=== PATIENT | female | born 1980 | race American Indian/Alaskan Native ===

== ENCOUNTER 2021-11-26 14:40 | Emergency (ER) | payer OTHER, MEDICAID ==
--- NOTE | 2021-11-26 15:09 | Emergency Department Report ---
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 She states that she is going through about 4 pads daily. She denies dizziness, weakness, and fatigue. - ROS Review of Systems: Patient complains of vaginal bleeding only. Denies abdominal pain and dysuria. - Exam Vital Signs: Vital Signs 11/26/21 15:00 Temperature 98.7 F Pulse Rate 74 Respiratory 18 Rate Blood Pressure 123/79 O2 Sat by Pulse 99 Oximetry Physical Exam: Awake alert and oriented. No tenderness to palpation of abdomen. MSE screening note: Focused history and physical exam performed. Due to findings the following was ordered: CBC, CMP, UA, serum qualitative . Patient to be evaluated by another provider when she gets to the room. ED Disposition for MSE Condition: Stable
[2021-11-26 15:41] LABS: Hematocrit 36.7 % (30.3-42.9); Mean Corpuscular HGB Conc 33 % (30-34); Mean Corpuscular Volume 90 fl (79-97); Platelet Count 288 K/mm3 (140-440); Red Blood Count 4.06 M/mm3 (3.65-5.03); Red Cell Distribution Width 13.9 % (13.2-15.2)
[2021-11-26 16:04] LABS: Alanine Aminotransferase 7 units/L (7-56); Albumin 4.1 g/dL (3.9-5); BUN/Creatinine Ratio 15; Blood Urea Nitrogen 12 mg/dL (7-17); Calcium 9.1 mg/dL (8.4-10.2); Hemolysis Index 1
[2021-11-26] MEDS ORDERED: KETOROLAC 10 MG TAB PO ONE (17:54)
[2021-11-26 18:19] LABS: Bilirubin,Urine NEG (Negative); Blood,Urine LG (Negative); Color,Urine Yellow (Yellow); Urobilinogen,Urine < 2.0 mg/dL (<2.0)
[2021-11-26 18:23] LABS: Mucus,Urine FEW /HPF
[2021-11-26 18:26] LABS: RBC,Urine > 182.0 /HPF (0.0-6.0)
--- NOTE | 2021-11-26 19:29 | Ultrasound Report ---
ULTRASOUND PELVIS INDICATION / CLINICAL INFORMATION: vaginal bleeding. TECHNIQUE: Transvaginal. Duplex Color Doppler used: Yes. COMPARISON: None available FINDINGS: UTERUS: Uterus measures 10.2 cm in length. The endometrial echo complex appears thickened measuring 2 .5 cm on image 10. There is a 1.6 cm cervical cyst. There is also a 5 mm cervical cyst. RIGHT ADNEXA: Right ovary contains a 2.6 cm simple cyst. Normal color Doppler blood flow. LEFT ADNEXA: There is a 2 cm left ovarian cyst. Normal color Doppler blood flow. URINARY BLADDER: No significant abnormality. FREE FLUID: None. ADDITIONAL FINDINGS: None. IMPRESSION: 1. Endometrial echo complex is thickened measuring 2.5 cm by my measurement. Correlation with menstru al cycle is recommended. 2. Simple bilateral ovarian cysts, no sonographic follow-up is needed. Signer Name: Gerardo Martini MD Signed: 11/26/2021 7:24 PM Workstation Name: [id number]
--- NOTE | 2021-11-26 19:52 | Emergency Department Report ---
ED Female HPI - General Chief complaint: Vaginal Bleeding Stated complaint: VAGINAL BLEEDING OVER 35 DAYS Time Seen by Provider: 11/26/21 15:06 Source: patient Mode of arrival: Ambulatory Limitations: No Limitations - History of Present Illness Initial comments: 41-year-old black female with a past medical history of asthma and narcolepsy and a surgical history of a myomectomy last year presents to the emergency department for evaluation of vaginal bleeding. She states that she started her period on October 09 and since then she has been bleeding persistently. She states that she inserted her NuvaRing and bleeding slowed down but over the past week bleeding has become progressively worse. She states that she has been saturating 3-4 pads daily. She states that she is also having some intermittent abdominal cramping. She denies fever, dysuria, nausea, vomiting, and vaginal discharge, but has had some intermittent dizziness and weakness over the past few days. MD Complaint: vaginal discharge -: Gradual, month(s) (1.5) Location: other (Generalized) Severity: mild Severity scale (0 -10): 2 Consistency: intermittent, now resolved Are you Now?: No Associated Symptoms: vaginal bleeding, abdominal pain. denies: vaginal discharge, nausea/vomiting, fever/chills, headaches, loss of appetite, dysuria, hematuria, rash, seizure, shortness of breath, syncope, weakness - Related Data Sexually active: Yes Previous Rx's Medication Instructions Recorded Last Taken Type medroxyPROGESTERone ACETATE 10 mg PO DAILY #10 tab 11/26/21 Unknown Rx [Medroxyprogesterone Acetate] Allergies Allergy/AdvReac Type Severity Reaction Status Date / Time No Known Allergies Allergy Unverified 11/26/21 14:59 ED Review of Systems ROS: Stated complaint: VAGINAL BLEEDING OVER 35 DAYS Other details as noted in HPI Comment: All other systems reviewed and negative Constitutional: denies: chills, fever, malaise, weakness Eyes: denies: vision change ENT: denies: congestion Respiratory: denies: shortness of breath, SOB with exertion Cardiovascular: denies: chest pain, palpitations, dyspnea on exertion, orthopnea, edema, syncope, paroxysmal nocturnal dyspnea Gastrointestinal: denies: abdominal pain, nausea, vomiting, diarrhea, constipation, hematemesis, melena, hematochezia Genitourinary: denies: urgency, dysuria Musculoskeletal: denies: back pain Skin: denies: rash, lesions Neurological: weakness. denies: headache ED Past Medical Hx - Past Medical History Previous Medical History?: Yes Hx Asthma: Yes Additional medical history: Narcolepsy, Uterine fibroids - Surgical History Past Surgical History?: Yes Additional Surgical History: Uterine fibroid removal - Medications Home Medications: Home Medications Medication Instructions Recorded Confirmed Last Taken Type medroxyPROGESTERone ACETATE 10 mg PO DAILY #10 tab 11/26/21 Unknown Rx [Medroxyprogesterone Acetate] ED Physical Exam - General Limitations: No Limitations General appearance: alert, in no apparent distress - Head Head exam: Present: atraumatic, normocephalic - Eye Eye exam: Present: normal appearance. Absent: scleral icterus, conjunctival injection, periorbital swelling, periorbital tenderness - ENT ENT exam: Present: normal exam, normal orophraynx - Neck Neck exam: Present: normal inspection, full ROM. Absent: tenderness, meningismus, lymphadenopathy, thyromegaly - Respiratory Respiratory exam: Present: normal lung sounds bilaterally. Absent: respiratory distress, wheezes, rales, rhonchi, stridor, chest wall tenderness - Cardiovascular Cardiovascular Exam: Present: regular rate, normal heart sounds - GI/Abdominal GI/Abdominal exam: Present: soft, normal bowel sounds. Absent: distended, tenderness, guarding, rebound, rigid - Extremities Exam Extremities exam: Present: normal inspection, normal capillary refill. Absent: pedal edema, joint swelling, calf tenderness - Back Exam Back exam: Present: normal inspection. Absent: CVA tenderness (R), CVA tenderness (L), vertebral tenderness - Neurological Exam Neurological exam: Present: alert, oriented X3, CN II-XII intact, normal gait, reflexes normal. Absent: motor sensory deficit - Psychiatric Psychiatric exam: Present: normal affect, normal mood - Skin Skin exam: Present: warm, dry, intact, normal color ED Course Vital Signs 11/26/21 11/26/21 15:00 20:02 Temperature 98.7 F Pulse Rate 74 76 Respiratory 18 14 Rate Blood Pressure 123/79 Blood Pressure 133/86 [Left] O2 Sat by Pulse 99 100 Oximetry ED Medical Decision Making - Lab Data Result diagrams: 11/26/21 15:22 11/26/21 15:22 - Radiology Data Radiology results: report reviewed, image reviewed Pelvic ultrasound: FINDINGS: UTERUS: Uterus measures 10.2 cm in length. The endometrial echo complex appears thickened measuring 2.5 cm on image 10. There is a 1.6 cm cervical cyst. There is also a 5 mm cervical cyst. RIGHT ADNEXA: Right ovary contains a 2.6 cm simple cyst. Normal color Doppler blood flow. LEFT ADNEXA: There is a 2 cm left ovarian cyst. Normal color Doppler blood flow. URINARY BLADDER: No significant abnormality. FREE FLUID: None. ADDITIONAL FINDINGS: None. IMPRESSION: 1. Endometrial echo complex is thickened measuring 2.5 cm by my measurement. Correlation with menstrual cycle is recommended. 2. Simple bilateral ovarian cysts, no sonographic follow-up is needed. - Medical Decision Making 41-year-old black female with a past medical history of asthma and narcolepsy and a surgical history of a myomectomy last year presents to the emergency department for evaluation of vaginal bleeding. She states that she started her period on October 09 and since then she has been bleeding persistently. She states that she inserted her NuvaRing and bleeding slowed down but over the past week bleeding has become progressively worse. She states that she has been saturating 3-4 pads daily. She states that she is also having some intermittent abdominal cramping. She denies fever, dysuria, nausea, vomiting, and vaginal discharge, but has had some intermittent dizziness and weakness over the past few days. Physical exam unremarkable, and CBC, CMP, and UA without any gross abnormalities noted. Ultrasound noted to find bilateral simple ovarian cyst and thickened endometrium. Patient will be discharged home with 10-day course of medroxyprogesterone. She is advised to take medications as prescribed and follow-up with her [employer] or primary care provider if no improvement or worsening symptoms. She is advised to return to the emergency department as needed. She verbalizes understanding of and agreement with plan of care. Critical care attestation.: If time is entered above; I have spent that time in minutes in the direct care of this critically ill patient, excluding procedure time. ED Disposition Clinical Impression: Abnormal uterine bleeding Disposition: 01 HOME / SELF CARE / HOMELESS Is pt being admited?: No Does the pt Need Aspirin: No Condition: Stable Instructions: Abnormal Uterine Bleeding, [id number] Additional Instructions: Take medications as prescribed. Follow-up with [employer] for further evaluation and management. Return to the emergency department as needed. Prescriptions: medroxyPROGESTERone ACETATE [Medroxyprogesterone Acetate] 10 mg PO DAILY #10 tab Referrals: GIOVANNA MCNAMARA MD [Staff Physician] - 3-5 Days Time of Disposition: 19:52
[2021-11-26 20:02] VITALS: BP 133/86
== END 2021-11-26 20:51 | disposition home or self-care (01) ==
LOC: ED 14:40
DX: N93.9 Abnormal uterine and vaginal bleeding, unspecified (principal); J45.909 Unspecified asthma, uncomplicated; D25.9 Leiomyoma of uterus, unspecified; Z98.890 Other specified postprocedural states
CPT/HCPCS: 36415; 76830; 76856; 80053; 81001; 84703; 85027; 87086; 99284